=== PATIENT | male | born 1955 | race Caucasian/White ===

== ENCOUNTER 2018-07-27 19:03 | Emergency (ER) | payer MEDICARE, MEDICAID ==
[~2018-07-27] VITALS: Ht 185.4 cm; Wt 81.6 kg
[2018-07-27 19:03] VITALS: BP_SYST 159; BP_SYST 190; BP_DIAS 101; BP_DIAS 95
--- NOTE | 2018-07-27 19:03 | NUR ---
63/M BIBA FOR SYNCOPAL EPISODE AND FALL IN HIS HOME. PT HAS NO RECOLLECTION BUT STATED HE MAY HAVE LANDED ON HIS LEFT SIDE.GCS 15, AOX4. ARRIVED ON CSPINE, REPORTS NECK PAIN AND LT SHOULDER PAIN. NECK +TENDER TO TOUCH, LEFT SHOULDER WITH NO OBVIOUS DEFORMITY, +PMSC TO LUE. NO OTHER SX OF INJURIES NOTED. Pt arrived in full C-spine precautions with hard C-collar and backboard in place. ED Physician notified. PMH: HTN, CHRONIC BACK PAIN, LEFT RIB FRACTURES, ARIELLA HIP FRACTURES
--- NOTE | 2018-07-27 19:03 | NUR ---
PT BIBA BLS. TAKEN TO BED 9
--- NOTE | 2018-07-27 19:24 | NUR ---
Dr. Costello evaluating patient at bedside.
[2018-07-27] MEDS ORDERED: KETOROLAC 60 MG/2 ML VIAL IM ONE (19:50)
[2018-07-27] MEDS ORDERED: KETOROLAC 30 MG/ML VIAL IVP ONE (19:55)
--- NOTE | 2018-07-27 20:09 | NUR ---
PT TAKEN TO CT
--- NOTE | 2018-07-27 20:34 | NUR ---
PT RETURN FROM CT
[2018-07-27 20:56] LABS: BASOPHILS # (AUTO) 0.2 K/uL (0.00-0.22); EOSINOPHILS # (AUTO) 0.3 K/uL (0-0.4); EOSINOPHILS % (AUTO) 3.9 % (0.0-4.0); HEMATOCRIT 37.6 % (36-52); HEMOGLOBIN 12.6 g/dL (12.0-18.0); LYMPHOCYTES # (AUTO) 1.8 K/uL (2.0-11.5); LYMPHOCYTES % (AUTO) 28.4 % (20.5-51.1); MEAN CORPUSCULAR HEMOGLOBIN 32 pg (27-31); MEAN CORPUSCULAR HGB CONC 33 g/dL (33-37); MEAN CORPUSCULAR VOLUME 96.3 fL (80-94); MONOCYTES # (AUTO) 0.7 K/uL (0.8-1.0); MONOCYTES % (AUTO) 10.7 % (1.7-9.3); NEUTROPHILS # (AUTO) 3.5 K/uL (1.8-7.7); PLATELET COUNT (AUTO) 196 K/uL (140-450); RED BLOOD CELL COUNT(AUTO) 3.91 MIL/uL (4.20-6.10); RED CELL DISTRIBUTION WIDTH 15.3 % (11.6-13.7); WHITE BLOOD COUNT (AUTO) 6.5 K/uL (4.8-10.8)
[2018-07-27 21:21] LABS: ALBUMIN 3.3 g/dL (3.4-5.0); ANION GAP 4.5 (8-16); CARBON DIOXIDE 33.1 mmol/L (21-32); CREATININE 0.9 mg/dL (0.7-1.3); POTASSIUM 3.6 mmol/L (3.5-5.1); TOTAL BILIRUBIN 0.2 mg/dL (0.0-1.0)
[2018-07-27 21:45] VITALS: BP 138/72
--- NOTE | 2018-07-27 21:45 | NUR ---
C-spine cleared by Dr. ALARCON Collar and backboard removed. Moves all extremities before and after backboard removal.
--- NOTE | 2018-07-27 21:50 | NUR ---
Patient discharged with v/s stable. Written and verbal after care instructions given and explained. Patient alert, oriented and verbalized understanding of instructions. Ambulatory with steady gait. All questions addressed prior to discharge. ID band removed. Patient advised to follow up with PMD. Rx of MOTRIN given. Patient educated on indication of medication including possible reaction and side effects. Opportunity to ask questions provided and answered. IV removed, catheter intact and site benign. Applied folded 4x4 gauze and tape to stop bleeding.
== END 2018-07-27 21:50 | disposition home or self-care (01) ==
LOC: MED 19:03
DX: R51 Headache (principal); R55 Syncope and collapse; M54.9 Dorsalgia, unspecified; M54.2 Cervicalgia; I10 Essential (primary) hypertension; F17.200 Nicotine dependence, unspecified, uncomplicated
CPT/HCPCS: 36415; 70450; 72125; 72131; 80053; 85025; 93005; 96374; 99285; J1885